=== PATIENT | male | born 1945 | race Caucasian/White ===

== ENCOUNTER → 2018-02-26 | Outpatient (CLI) | payer MEDICARE ==
[~2018-02-26] MED LIST: IOHEXOL 240 MG/ML 50ML VIAL. ONE; IOHEXOL 300 MG/ML 75 ML VIAL. IV ONE; LISI1TAB3 PO
[2018-02-26 10:17] LABS: BASO % 1 % (0-3); EOS % 1 % (0-3); HEMATOCRIT 42.3 % (39.0-53.0); LYMPH # 0.8 x10^3/uL (1.0-4.8); LYMPH % 21 % (24-48); MEAN CORPUSCULAR HEMOGLOBIN 31 pg (25-35); MEAN CORPUSCULAR HGB CONC 36 g/dL (31-37); MEAN CORPUSCULAR VOLUME 88 fL (79-100); MONO # 0.4 x10^3/uL (0.0-1.1); MONO % 12 % (0-9); NEUT # 2.4 x10^3uL (1.8-7.7); NEUT % 65 % (31-73); PLATELET COUNT 254 x10^3/uL (140-400); RED BLOOD COUNT 4.79 x10^6/uL (4.30-5.70); RED CELL DISTRIBUTION WIDTH 12.8 % (11.5-14.5); WHITE BLOOD COUNT 3.7 x10^3/uL (4.0-11.0)
[2018-02-26 10:26] LABS: ALBUMIN 4.7 g/dL (3.4-5.0); ALBUMIN/GLOBULIN RATIO 1.2 (1.0-1.7); CALCIUM 9.2 mg/dL (8.5-10.1); GFR 73.7; POTASSIUM 3.4 mmol/L (3.5-5.1); TOTAL BILIRUBIN 0.9 mg/dL (0.2-1.0); TOTAL PROTEIN 8.5 g/dL (6.4-8.2)
--- NOTE | 2018-02-26 12:02 | RAD ---
CT of the abdomen and pelvis with contrast, 02/26/2018: HISTORY: Abdominal pain, high blood pressure Multidetector CT imaging was performed following oral and IV administration of contrast. No hepatic abnormality is seen. The gallbladder is unremarkable. No pancreatic abnormality is detected. The spleen is of normal size. No renal or adrenal abnormality is detected. There is moderate aortoiliac calcific plaquing without evidence of aneurysm. No abdominal or pelvic adenopathy is seen. Colonic diverticula are present most numerous in the sigmoid region. No paracolonic inflammatory process is seen. The bowel loops are not dilated. A portion of the appendix is visualized and it is unremarkable. No free fluid or free air is evident in the abdomen or pelvis. There is a history of hernia repairs. A small 1.4 x 2.7 fluid collection is noted at the left groin. This is unchanged since 11/27/2013 and probably represents an old postoperative seroma. No bowel herniation is evident. There is fascial thickening at the right groin compatible with previous hernia surgery. IMPRESSION: 1. Colonic diverticulosis. 2. Small old left groin fluid collection compatible with an old postoperative seroma. 3. No acute abdominal or pelvic abnormality is detected. PQRS Compliance Statement: One or more of the following individualized dose reduction techniques were utilized for this examination: 1. Automated exposure control 2. Adjustment of the mA and/or kV according to patient size 3. Use of iterative reconstruction technique Electronically signed by: Evert Mcdonough MD (02/26/2018 11:59 AM) [facility]
== END | disposition home or self-care (01) ==
LOC: CT 09:33
PROVIDERS: ATTEND Physician Assistant
DX: K57.30 Diverticulosis of large intestine without perforation or abscess without bleeding (principal); K91.873 Postprocedural seroma of a digestive system organ or structure following other procedure; I10 Essential (primary) hypertension
CPT/HCPCS: 36415; 74177; 80053; 82150; 83690; 85025; Q9966; Q9967

== ENCOUNTER 2020-02-15 20:12 | Emergency (ER) | payer MEDICARE ==
[~2020-02-15] VITALS: Ht 177.8 cm; Wt 84.0 kg
[~2020-02-15 20:12] MED LIST changes: -IOHEXOL 240 MG/ML 50ML VIAL. ONE; -IOHEXOL 300 MG/ML 75 ML VIAL. IV ONE; +LISI1TAB23 PO; -LISI1TAB3 PO
[2020-02-15 21:15] LABS: BASO % 1 % (0-3); EOS % 1 % (0-3); HEMATOCRIT 42.7 % (39.0-53.0); LYMPH # 0.9 x10^3/uL (1.0-4.8); LYMPH % 21 % (24-48); MEAN CORPUSCULAR HEMOGLOBIN 32 pg (25-35); MEAN CORPUSCULAR HGB CONC 35 g/dL (31-37); MEAN CORPUSCULAR VOLUME 92 fL (79-100); MONO # 0.7 x10^3/uL (0.0-1.1); MONO % 16 % (0-9); NEUT # 2.6 x10^3uL (1.8-7.7); NEUT % 62 % (31-73); PLATELET COUNT 248 x10^3/uL (140-400); RED BLOOD COUNT 4.64 x10^6/uL (4.30-5.70); RED CELL DISTRIBUTION WIDTH 12.5 % (11.5-14.5); WHITE BLOOD COUNT 4.2 x10^3/uL (4.0-11.0)
[2020-02-15 21:21] LABS: CALCIUM 9.4 mg/dL (8.5-10.1); CREATININE 1.1 mg/dL (0.7-1.3); GFR 65.6; POTASSIUM 3.2 mmol/L (3.5-5.1)
--- NOTE | 2020-02-15 21:24 | PHYS DOC ---
Past History Past Medical History: Hypertension Past Surgical History: Other Additional Past Surgical Histo: GI scope. Alcohol Use: None Adult General Chief Complaint Chief Complaint: NAUSEA/VOMITING/DIARRHEA HPI HPI Patient is a 74-year-old male who presents for nausea, vomiting and diarrhea. Patient reports this is an acute on chronic phenomenon. Reports having upper and lower endoscopy 10 days ago that was grossly unremarkable, cites he had several noncancerous polyps removed. Reports he had this performed as it was time for his annual colonoscopy screening, he is unsure why he got the upper endoscopy performed. Patient reports having nonspecific symptoms that include generalized abdominal pain and nausea prompting him to call his primary care physician 4 days ago, he was subsequently prescribed Levaquin and ciprofloxacin as he has a reported history of diverticulitis. He has been taking these medications daily. Patient reports ongoing nausea, reports development of emesis which is nonbloody and nonbilious in nature approximately 48 hours ago. He also cites increased looseness in his stools which is unusual for him. Denies any known and ingestions, sick contacts or exposures. Patient reports he has been compliant with social distancing and quarantining at home but admits he does travel to grocery store to get daily goods etc. Review of Systems Review of Systems Fourteen body systems of review of systems have been reviewed. See HPI for pertinent positives and negative responses, other de león all other systems are negative, non-pertinent or non-contributory Allergies Allergies Allergies Uncoded Allergies Type Severity Reaction Last Updated Verified SEASONAL Allergy Unknown 11/27/13 Physical Exam Physical Exam Constitutional: Well developed, well nourished, no acute distress, non-toxic appearance. [] HENT: Normocephalic, atraumatic, bilateral external ears normal, oropharynx moist, no oral exudates, nose normal. [] Eyes: PERRLA, EOMI, conjunctiva normal, no discharge. [] Neck: Normal range of motion, no tenderness, supple, no stridor. [] Cardiovascular:Heart rate regular rhythm, no murmur [] Lungs & Thorax: Bilateral breath sounds clear to auscultation [] Abdomen: Bowel sounds normal, soft, no tenderness, no masses, no pulsatile masses. [] Skin: Warm, dry, no erythema, no rash. [] Back: No tenderness, no CVA tenderness. [] Extremities: No tenderness, no cyanosis, no clubbing, ROM intact, no edema. [] Neurologic: Alert and oriented X 3, normal motor function, normal sensory function, no focal deficits noted. [] Psychologic: Affect normal, judgement normal, mood normal. [] Current Patient Data Vital Signs Vital Signs Date Time Temp Pulse Resp B/P (MAP) Pulse Ox O2 Delivery O2 Flow Rate FiO2 02/15/20 20:52 67 16 177/114 (135) 98 Room Air 02/15/20 20:22 98.0 Lab Results Laboratory Tests Test 02/15/20 20:36 White Blood Count 4.2 x10^3/uL (4.0-11.0) Red Blood Count 4.64 x10^6/uL (4.30-5.70) Hemoglobin 15.0 g/dL (13.0-17.5) Hematocrit 42.7 % (39.0-53.0) Mean Corpuscular Volume 92 fL (79-100) Mean Corpuscular Hemoglobin 32 pg (25-35) Mean Corpuscular Hemoglobin Concent 35 g/dL (31-37) Red Cell Distribution Width 12.5 % (11.5-14.5) Platelet Count 248 x10^3/uL (140-400) Neutrophils (%) (Auto) 62 % (31-73) Lymphocytes (%) (Auto) 21 % (24-48) L Monocytes (%) (Auto) 16 % (0-9) H Eosinophils (%) (Auto) 1 % (0-3) Basophils (%) (Auto) 1 % (0-3) Neutrophils # (Auto) 2.6 x10^3uL (1.8-7.7) Lymphocytes # (Auto) 0.9 x10^3/uL (1.0-4.8) L Monocytes # (Auto) 0.7 x10^3/uL (0.0-1.1) Eosinophils # (Auto) 0.0 x10^3/uL (0.0-0.7) Basophils # (Auto) 0.0 x10^3/uL (0.0-0.2) Sodium Level 126 mmol/L (136-145) L Potassium Level 3.2 mmol/L (3.5-5.1) L Chloride Level 90 mmol/L (98-107) L Carbon Dioxide Level 26 mmol/L (21-32) Anion Gap 10 (6-14) Blood Urea Nitrogen 11 mg/dL (8-26) Creatinine 1.1 mg/dL (0.7-1.3) Estimated GFR (Cockcroft-Gault) 65.6 BUN/Creatinine Ratio 10 (6-20) Glucose Level 110 mg/dL (70-99) H Calcium Level 9.4 mg/dL (8.5-10.1) Total Bilirubin Pending Aspartate Amino Transferase (AST) Pending Alanine Aminotransferase (ALT) Pending Alkaline Phosphatase Pending Total Protein Pending Albumin Pending Albumin/Globulin Ratio Pending Lipase Pending EKG EKG EKG ordered and interpreted by myself at 2128 hrs. as sinus rhythm at 87 bpm, unremarkable intervals, left axis deviation, no acute ischemic findings, no STEMI Radiology/Procedures Radiology/Procedures PROCEDURE: CT ABD PELV W/ IV CONTRST ONLY EXAMINATION: CT ABD PELV W/ IV CONTRST ONLY (CT ABDOMEN/PELVIS WITH IV CONTRAST) CLINICAL HISTORY: Left lower quadrant abdominal pain TECHNIQUE: CT of the abdomen and pelvis was performed using standard technique, scanning from just above the dome of the diaphragm to the symphysis pubis following administration of intravenous contrast. CT Dose Reduction Employed: One or more of the following individualized dose reduction techniques were utilized for this examination: 1. Automated exposure control 2. Adjustment of the mA and/or kV according to patient size 3. Use of iterative reconstruction technique. COMPARISON: 02/26/2018 FINDINGS: Lower thorax: Unremarkable. Liver: Mild hypoattenuation of the hepatic parenchyma, compatible with mild steatosis. Biliary: No bile duct dilation. Minimally distended gallbladder. Spleen: No mass. No splenomegaly. Pancreas: No mass or duct dilation. Adrenals: No mass. Kidneys: No mass, calculus or hydronephrosis. GI tract: No dilation or wall thickening. Sigmoid diverticulosis without evidence of acute diverticulitis. Normal appendix. Lymph nodes: No abdominal or pelvic lymphadenopathy. Mesentery/Peritoneum: No ascites or mass. Retroperitoneum: No mass. Vasculature: The celiac axis and SMA are patent. The portal vein and branches, splenic vein, SMV, and hepatic veins are patent. Arterial atherosclerotic disease without aneurysm. Pelvis: Postoperative changes related to inguinal hernia repairs, similar in appearance on prior study. Moderately filled urinary bladder. Bones/Soft Tissues: L5-S1 degenerative disc disease. Degenerative changes bilateral SI joints. IMPRESSION: No evidence of acute abdominopelvic abnormality. Sigmoid diverticulosis without evidence of acute diverticulitis. Essentially unchanged postoperative findings related to inguinal hernia repairs. Electronically signed by: Hair Callejas DO (02/15/2020 11:27 PM) [facility] Heart Score Risk Factors: Risk Factors: DM, Current or recent (<one month) smoker, HTN, HLP, family history of CAD, obesity. Risk Scores: Risk Factors: DM, Current or recent (<one month) smoker, HTN, HLP, family history of CAD, obesity. Course & Med Decision Making Course & Med Decision Making Hemodynamically stable and well-appearing male Pertinent Labs and Imaging studies reviewed. (See chart for details) He responded to IV fluid rehydration while in ER with near total symptomatic improvement I discussed grossly benign ER work-up today, I did disclose given current pandemic and symptomology that I could not definitively rule out COVID-19 and recommended he be swabbed for this today, he declined Patient reports having good access to care with outpatient primary care physician. I advised him to continue previously prescribed medications, to take them as instructed to completion and follow-up with his primary care provider in upcoming 14 days after ER discharge Strict return precautions were discussed with good understanding by patient, all questions and concerns addressed prior to ER departure in improved condition Wendi Disclaimer Wendi Disclaimer This electronic medical record was generated, in whole or in part, using a voice recognition dictation system. Departure Departure: Impression: Primary Impression: Nausea, vomiting, and diarrhea Additional Impression: Electrolyte abnormality Disposition: 01 DC HOME SELF CARE/HOMELESS Condition: IMPROVED Referrals: JF MCGOVERN MD (PCP) Patient Instructions: Nausea and Vomiting Additional Instructions: As discussed prior to ER departure, please call your primary care physician first thing in the morning to schedule outpatient follow-up Please utilize attached reading and continue supportive care measures for your nausea and vomit. Please also continue previously prescribed antibiotics from your PCP, take as prescribed to completion As disclosed, you have several electrolyte abnormalities which will need repeat evaluation in outpatient setting this upcoming week so please be sure to follow- up with your primary care physician. In addition, you were found to have trace elevation in liver enzymes which will also need to be monitored in an outpatient setting If any concerning signs or symptoms present prior to your departure, please do not hesitate to come back for repeat examination Your evaluation was not suggestive of any emergent condition requiring medical intervention at this time. However, some problems make take more time to appear. Therefore, it is important for you to watch for any new symptoms or worsening of your current condition. Return to the Emergency Department if you experience worsening pain, persistent fevers greater than 100.4, recurrent vomiting, blood in vomit, blood in stool, dark tarry stool, chest pain, difficulty breathing, or any other concerning symptoms. It was a pleasure to take care of you and I wish you a speedy recovery! Problem Qualifiers VILMA KEMP DO Feb 15, 2020 21:24
[2020-02-15 21:28] LABS: ALBUMIN 4.1 g/dL (3.4-5.0); ALBUMIN/GLOBULIN RATIO 1.2 (1.0-1.7); TOTAL PROTEIN 7.5 g/dL (6.4-8.2)
[2020-02-15] MEDS ORDERED: CONTRAST GIVEN. MC PRN (21:45)
[2020-02-15] MEDS ORDERED: IOHEXOL 300 MG/ML 75 ML VIAL. IV ONE (22:00)
[2020-02-15] MEDS ORDERED: IV NORMAL SALINE 1,000ML 1,000 ML IV ONE (22:00)
--- NOTE | 2020-02-15 22:15 | EKG ---
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
[2020-02-15 22:16] LABS: CLARITY,URINE CLEAR; COLOR,URINE YELLOW
[2020-02-15 22:17] LABS: BACTERIA,URINE 0 /HPF (0-FEW); BILIRUBIN,URINE NEG (NEG); GLUCOSE,URINE NEG (NEG); NITRITE,URINE NEG (NEG); RBC,URINE 0 /HPF (0-2); UROBILINOGEN,URINE 0.2 mg/dL (0.2 mg/dL); WBC,URINE 0 /HPF (0-4)
--- NOTE | 2020-02-15 22:17 | RAD ---
EXAM: AP View of the chest DATE: 02/15/2020 9:01 PM INDICATION: Reason: epigastric pain / Spl. Instructions: / History: COMPARISON: No Prior FINDINGS: The heart is not enlarged. Mediastinal and hilar contours are normal. No focal parenchymal airspace opacity. No pleural effusion or pneumothorax. IMPRESSION: 1. No radiographic evidence for acute cardiopulmonary process. Electronically signed by: Fritz Waters MD (02/15/2020 10:15 PM) [facility]
[2020-02-15] MEDS ORDERED: POTASSIUM CHLORIDE 20 MEQ TABLET.ER. PO ONE (23:00)
--- NOTE | 2020-02-15 23:29 | RAD ---
EXAMINATION: CT ABD PELV W/ IV CONTRST ONLY (CT ABDOMEN/PELVIS WITH IV CONTRAST) CLINICAL HISTORY: Left lower quadrant abdominal pain TECHNIQUE: CT of the abdomen and pelvis was performed using standard technique, scanning from just above the dome of the diaphragm to the symphysis pubis following administration of intravenous contrast. CT Dose Reduction Employed: One or more of the following individualized dose reduction techniques were utilized for this examination: 1. Automated exposure control 2. Adjustment of the mA and/or kV according to patient size 3. Use of iterative reconstruction technique. COMPARISON: 02/26/2018 FINDINGS: Lower thorax: Unremarkable. Liver: Mild hypoattenuation of the hepatic parenchyma, compatible with mild steatosis. Biliary: No bile duct dilation. Minimally distended gallbladder. Spleen: No mass. No splenomegaly. Pancreas: No mass or duct dilation. Adrenals: No mass. Kidneys: No mass, calculus or hydronephrosis. GI tract: No dilation or wall thickening. Sigmoid diverticulosis without evidence of acute diverticulitis. Normal appendix. Lymph nodes: No abdominal or pelvic lymphadenopathy. Mesentery/Peritoneum: No ascites or mass. Retroperitoneum: No mass. Vasculature: The celiac axis and SMA are patent. The portal vein and branches, splenic vein, SMV, and hepatic veins are patent. Arterial atherosclerotic disease without aneurysm. Pelvis: Postoperative changes related to inguinal hernia repairs, similar in appearance on prior study. Moderately filled urinary bladder. Bones/Soft Tissues: L5-S1 degenerative disc disease. Degenerative changes bilateral SI joints. IMPRESSION: No evidence of acute abdominopelvic abnormality. Sigmoid diverticulosis without evidence of acute diverticulitis. Essentially unchanged postoperative findings related to inguinal hernia repairs. Electronically signed by: Hair Callejas DO (02/15/2020 11:27 PM) [facility]
[2020-02-15 23:38] VITALS: BP 154/103
== END 2020-02-15 23:38 | disposition home or self-care (01) ==
LOC: ER 20:12
DX: E87.8 Other disorders of electrolyte and fluid balance, not elsewhere classified (principal); R11.2 Nausea with vomiting, unspecified; R19.7 Diarrhea, unspecified; I10 Essential (primary) hypertension
CPT/HCPCS: 36415; 71045; 74177; 80053; 81001; 83690; 84484; 85025; 93005; 96360; 99285; J7030; Q9967

== ENCOUNTER → 2020-07-30 | Outpatient (CLI) | payer MEDICARE ==
--- NOTE | 2020-07-30 12:55 | RAD ---
EXAM: CT Abdomen and Pelvis without IV contrast CLINICAL HISTORY: Reason: NAUSEA/VOMITING FOR 3 WEEKS / Spl. Instructions: / History: . COMPARISON: 02/15/2020, 02/26/2018 TECHNIQUE: Helical CT of the abdomen and pelvis without intravenous contrast. Axial, coronal and sagi ttal reformatted images were generated. PQRS compliance statement - One or more of the following individualized dose reduction techniques wer e utilized for this study: 1. Automated exposure control 2. Adjustment of the mA and/or kV according to patient size 3. Use of iterative reconstruction technique FINDINGS: Lack of intravenous contrast limits evaluation of solid organs, vasculature, and lymph nodes. Lower chest: 5 mm lingular lung nodule is seen, stable to 02/26/2018. Patchy opacities dependently right greater th an left lower lobe. Abdomen and Pelvis: No focal liver lesion. Gallbladder is normal. No biliary duct dilatation. Pancreas is unremarkable. S pleen is normal in appearance. Adrenal glands are unremarkable. No focal renal lesion. No hydronephrosis. No hydroureter. Mild bladder wall thickening likely cystiti s. Moderate colonic stool content is seen. Colonic diverticula are noted. Prostate is mildly prominent. Appendix is normal, no periappendiceal inflammatory change. Changes of left inguinal mesh hernia repa ir. Fat-containing right inguinal hernia. No abdominal or pelvic lymphadenopathy. Aortic and main branch calcifications. Bones: Severe L5-S1 disc height loss. IMPRESSION: 1. Mild bladder wall thickening likely cystitis. 2. Colonic diverticulosis without evidence for acute diverticulitis. 3. Moderate colonic stool content. Electronically signed by: Fritz Waters MD (07/30/2020 12:53 PM) [id number]
== END ==
LOC: CT 07:49
PROVIDERS: ATTEND Family Medicine
DX: K57.30 Diverticulosis of large intestine without perforation or abscess without bleeding (principal)
CPT/HCPCS: 74176

== ENCOUNTER 2020-08-24 14:55 | Observation (INO) | payer MEDICARE ==
[~2020-08-24] VITALS: Ht 180.3 cm; Wt 81.0 kg
[2020-08-24 15:30] VITALS: BP 163/98
[2020-08-24] MEDS ORDERED: ACETAMINOPHEN 500 MG TABLET PO PRN (16:45)
[2020-08-24] MEDS: IV NORMAL SALINE 1,000ML 1,000 ML IV SCH (16:45)
[2020-08-24] MEDS ORDERED: MORPHINE SULFATE 2 MG/ML DISP.SYRIN. IV PRN (16:45)
[2020-08-24] MEDS ORDERED: ZOLPIDEM 5 MG TABLET. PO PRN ×2 (16:45→17:45)
[2020-08-24] MEDS ORDERED: 0.9 % SODIUM CHLORIDE 10 ML DISP.SYRIN. IV PRN (16:45)
[2020-08-24] MEDS ORDERED: ONDANSETRON ODT 4 MG TAB.RAPDIS PO PRN (16:45)
[2020-08-24 17:21] LABS: BASO % 0 % (0-3); EOS % 0 % (0-3); HEMATOCRIT 42.7 % (39.0-53.0); HEMOGLOBIN 14.9 g/dL (13.0-17.5); LYMPH # 0.4 x10^3/uL (1.0-4.8); LYMPH % 9 % (24-48); MEAN CORPUSCULAR HEMOGLOBIN 32 pg (25-35); MEAN CORPUSCULAR HGB CONC 35 g/dL (31-37); MEAN CORPUSCULAR VOLUME 92 fL (79-100); MONO # 0.4 x10^3/uL (0.0-1.1); MONO % 11 % (0-9); NEUT # 3.2 x10^3uL (1.8-7.7); NEUT % 80 % (31-73); PLATELET COUNT 206 x10^3/uL (140-400); RED BLOOD COUNT 4.62 x10^6/uL (4.30-5.70)
[2020-08-24 17:32] LABS: CALCIUM 9.5 mg/dL (8.5-10.1); GFR 73.2
[2020-08-24 17:38] LABS: ALBUMIN 4.5 g/dL (3.4-5.0); ALBUMIN/GLOBULIN RATIO 1.1 (1.0-1.7); TOTAL BILIRUBIN 0.8 mg/dL (0.2-1.0); TOTAL PROTEIN 8.5 g/dL (6.4-8.2)
[2020-08-24] MEDS ORDERED: ONDANSETRON PF 4 MG/2 ML VIAL. IVP PRN (17:45)
[2020-08-24] MEDS ORDERED: cloNIDine TTS-2 1 PATCH PATCH TD SCH (18:00)
[2020-08-24] MEDS ORDERED: OMEP40CA7 PO (18:48)
[2020-08-24 19:04] LABS: BILIRUBIN,URINE SMALL (NEG); CLARITY,URINE CLEAR; COLOR,URINE YELLOW; GLUCOSE,URINE NEG (NEG)
[2020-08-24 19:05] LABS: NITRITE,URINE NEG (NEG)
[2020-08-24 19:07] LABS: BACTERIA,URINE 0 /HPF (0-FEW); RBC,URINE OCC /HPF (0-2); SQUAMOUS EPITHELIAL CELL,UR OCC /LPF; WBC,URINE 0 /HPF (0-4)
--- NOTE | 2020-08-24 19:24 | NUR ---
Patient arrived to the unit via ambulation. Patient was a direct admit from Dr. Miguel's office. Patient has been having bouts of N/V for several weeks off and on. Patient stated that he has been having trouble ever since Dr. Ocasio removed some polyps in June 2020. Patient also stated he has had some adverse reactions to the Covid Vaccine. Patient vomited this am at home and in Dr. Price office, therefore Dr Miguel admitted the patient with N/V, Abdominal pain, and dehydration. Patient was oriented to unit routines. Patient is currently in bed with side rails up X's 2 and call light in reach. Also patients is leaving for [place] tomorrow morning for a [employer] tournament. The patient was also supposed to be attending this [employer] tournament in [place] but Dr. Miguel advised the patient to not fly at this current time. We have 's contact information if needed. TM.
[2020-08-24 19:35] VITALS: BP 181/97
--- NOTE | 2020-08-24 20:03 | EKG ---
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
[2020-08-24] MEDS ORDERED: METOPROLOL TARTRATE 5 MG/5 ML VIAL. IV PRN (21:30)
[2020-08-24] MEDS ORDERED: ENOXAPARIN 40 MG/0.4 ML SYRINGE. SQ SCH (22:00)
[2020-08-24 22:18] VITALS: BP 175/92
[2020-08-24] MEDS: ZOLPIDEM 5 MG TABLET. PO PRN ×2 (22:42→23:55)
[2020-08-25] MEDS: IV NORMAL SALINE 1,000ML 1,000 ML IV SCH (02:45)
[2020-08-25] MEDS ORDERED: FUROSEMIDE 20 MG/2 ML VIAL IVP ONE (05:15)
[2020-08-25 06:07] LABS: BASO % 1 % (0-3); EOS % 0 % (0-3); HEMATOCRIT 41.5 % (39.0-53.0); HEMOGLOBIN 14.6 g/dL (13.0-17.5); LYMPH # 0.8 x10^3/uL (1.0-4.8); LYMPH % 24 % (24-48); MEAN CORPUSCULAR HEMOGLOBIN 33 pg (25-35); MEAN CORPUSCULAR HGB CONC 35 g/dL (31-37); MEAN CORPUSCULAR VOLUME 93 fL (79-100); MONO # 0.8 x10^3/uL (0.0-1.1); MONO % 23 % (0-9); NEUT # 1.7 x10^3uL (1.8-7.7); NEUT % 52 % (31-73); PLATELET COUNT 190 x10^3/uL (140-400); RED BLOOD COUNT 4.46 x10^6/uL (4.30-5.70); RED CELL DISTRIBUTION WIDTH 12.9 % (11.5-14.5); WHITE BLOOD COUNT 3.3 x10^3/uL (4.0-11.0)
[2020-08-25 06:23] LABS: DIRECT BILIRUBIN 0.3 mg/dL (0.0-0.2); TOTAL BILIRUBIN 0.8 mg/dL (0.2-1.0)
[2020-08-25 06:42] VITALS: BP 190/109
[2020-08-25] MEDS ORDERED: LABETALOL 20 MG/4 ML DISP.SYRIN. IVP ONE (06:45)
[2020-08-25] MEDS ORDERED: IOHEXOL 350 MG/ML 100 ML VIAL. IV ONE (07:30)
--- NOTE | 2020-08-25 08:07 | RAD ---
XR CHEST 2V History: Reason: CHEST PAIN / Spl. Instructions: / History: Comparison: February 15, 2020 Findings: No consolidation or pleural effusion. Normal heart size. No pneumothorax. Impression: 1. No acute cardiopulmonary process. Electronically signed by: Wallace Cedeño DO (08/25/2020 8:05 AM) [facility]
--- NOTE | 2020-08-25 08:18 | RAD ---
PQRS Compliance Statement: One or more of the following individualized dose reduction techniques were utilized for this examinat ion: 1. Automated exposure control 2. Adjustment of the mA and/or kV according to patient size 3. Use of iterative reconstruction technique CT CHEST WITH CONTRAST, PULMONARY ANGIOGRAM History: Reason: sinus tacy soa + d dimer, Comparison: None. Technique: Helical CT of the chest was performed after the administration of 100 cc of Omnipaque 350 intravenous contrast according to PE protocol. Axial and coronal reconstructions were obtained. 3- D MIP images were constructed to better evaluate the pulmonary arteries. Findings: Pulmonary arteries are adequately opacified. There is no evidence of pulmonary embolism. There is no thoracic aortic dissection. The celiac artery is patent. There is about 50 percent narrow ing of the proximal SMA. The visualized right and left renal arteries are patent. Aortic arch vessels are patent. Great vessels are normal caliber. The thyroid is symmetric. There is no adenopathy in the chest. There is coronary artery disease. Card iac size normal, no pericardial effusion. There is no pleural effusion. The central airways are patent. There is no lung consolidation. There i s a 6 mm noncalcified nodule in the lingula, image 69. This is stable compared to February 26, 2018, t herefore considered benign. No follow-up is suggested. There is fatty infiltration of the visualized liver, focal fatty sparing along the gallbladder fossa. Thoracic spine alignment is maintained. IMPRESSION: 1. There is no pulmonary embolus. 2. Fatty infiltration of the liver. Electronically signed by: Christopher Nice MD (08/25/2020 8:15 AM) [id number]
[2020-08-25 08:31] VITALS: BP 174/93
[2020-08-25 08:35] VITALS: BP 146/91
[2020-08-25 08:36] VITALS: BP 132/87
[2020-08-25] MEDS ORDERED: ONDA4TAB12 PO (08:53)
--- NOTE | 2020-08-25 09:56 | NUR ---
DISCHARGE NOTE pt discharged by Dr. Fernandez today. Pt verbalized understanding of discharge instructions and prescription transmitted to [facility]. All questions addressed. Pt ambulated from room to hospital entrance and left with family member in car. VSS and GCS 15 upon discharge. CC, RN
--- NOTE | 2020-08-25 19:33 | DS ---
DATE OF DISCHARGE: 08/25/2020 HOSPITAL COURSE: A 74-year-old gentleman came in through the office where he was having severe intractable nausea, vomiting, dehydration and also hypertensive urgency. The patient had not been able to take his medications or anything orally for that matter and was admitted to the hospital for control of his blood pressure as well as IV hydration and further evaluation of his intractable nausea and vomiting. The patient had a CT of the abdomen and pelvis, which showed some fat stranding around the bilateral kidneys, nonspecific, possible urinary tract infection, hepatic steatosis, colonic diverticulosis and a 6 mm nodule in the lingula of the lung. Followup CT as an outpatient. The patient was admitted. He was given Catapres patch as well as IV metoprolol and then later labetalol to control his blood pressure, which did come down. His nausea and vomiting abated with IV hydration and his last blood pressure is 132/87 with a pulse of 98. He was afebrile, 97 on room air. The patient made good progress during the rest of his hospitalization, did have a positive D-dimer. CTA was unremarkable as far as infective etiology or pulmonary emboli for that matter. The patient said he was feeling much better. Blood pressure has come down and he was discharged to home. His labs were unremarkable except for low white count of 3.3, increased monocytes, could have been a viral infection. The patient's AST and ALT were elevated at 58 and 73, total protein high at 8.5, glucose borderline at 122. Lactic acid was normal. Urine just showed increased ketones consistent with the fact the patient was unable to eat or drink anything for several days. C-reactive protein was slightly elevated at 3.8. The patient was discharged. FINAL DIAGNOSIS: Intractable vomiting, dehydration, hypertensive urgency, elevated liver enzymes, hyperglycemia, hepatic steatosis, hyponatremia 132 and leukopenia 3.3. The patient continued to be monitored as an outpatient and make further evaluation on his blood pressure as well as his other symptoms as indicated. MICHEL DR: Lizzie TID: [id number]
== END 2020-08-25 09:55 | disposition home or self-care (01) ==
LOC: 1 SOUTH 15:15 → INTOOBSV 15:15
PROVIDERS: ADMIT Family Medicine; ATTEND Family Medicine
DX: I16.0 Hypertensive urgency (principal); E86.0 Dehydration; D72.819 Decreased white blood cell count, unspecified; E87.1 Hypo-osmolality and hyponatremia; I26.99 Other pulmonary embolism without acute cor pulmonale; K76.0 Fatty (change of) liver, not elsewhere classified; R73.9 Hyperglycemia, unspecified
CPT/HCPCS: 36415; 71046; 71275; 74176; 80053; 80076; 81001; 82947; 83605; 83690; 84484; 85025; 85379; 86140; 93005; 96361; 96365; 96372; 96375; G0378; G0379; J0696; J1650; J2405; J3490; J7030; Q9967

== ENCOUNTER 2020-11-12 02:34 | Emergency (ER) | payer MEDICARE ==
[~2020-11-12] VITALS: Ht 182.9 cm; Wt 76.0 kg
[~2020-11-12 02:34] MED LIST changes: +OMEP40CA7 PO; +ONDA4TAB12 PO
[2020-11-12 02:44] VITALS: BP 149/68
--- NOTE | 2020-11-12 03:05 | PHYS DOC ---
Past History Past Medical History: Hypertension Past Surgical History: No Surgical History Additional Past Surgical Histo: GI scope. Smoking: Non-smoker Alcohol Use: None Drug Use: None General Adult EDM: Chief Complaint: COUGH HPI: HPI: 75-year-old male presents to the emergency department complaining of cough that started today. He reports the cough is dry, started gradually. Is not associate with any fever, chills chest pain or shortness of breath. He has been vaccinated for Covid with the moderna shot x2. He reports he has been very vigilant about social distancing and limiting his activities and wearing a mask at all times to prevent him from getting coronavirus. He denies any specific instances of possible transmission. Review of Systems: Review of Systems: Constitutional: Denies fever or chills. Eyes: Denies change in vision, pain. HENT: Denies congestion or sore throat. Respiratory: Admits to cough; denies shortness of breath. Cardiovascular: Denies chest pain or edema. GI: Denies abdominal pain, nausea. : Denies change in urination, dysuria. Musculoskeletal: Denies extremity pain, or trauma. Skin: Denies rash, skin change. Neurologic: Denies headache, focal weakness. Psychiatric: Denies depression or anxiety. All other systems reviewed as negative except for what was mentioned in the HPI. Family History: Family History: Noncontributory Allergies: Allergies: Allergies Uncoded Allergies Type Severity Reaction Last Updated Verified SEASONAL Allergy Unknown 11/27/13 Physical Exam: PE: Constitutional: No acute distress, non-toxic appearance. HENT: Atraumatic, bilateral external ears normal, nose normal. Neck: Normal range of motion, supple, no stridor. Cardiovascular: Heart rate regular rhythm. 2+ radial pulses Lungs & Thorax: No respiratory distress, symmetrical expansion. Coarse breath sounds. Patient with frequent cough during exam. Abdomen: Soft, no tenderness Skin: Warm, dry. Extremities: No tenderness, no cyanosis, ROM intact, no edema. Neurologic: Alert and oriented X 3, normal motor function, normal sensory function, no focal deficits noted. Non ataxic gait. GCS 15. Psychologic: Affect normal, judgment normal, mood normal. Current Patient Data: Labs: Laboratory Tests Test 11/12/20 03:45 White Blood Count 3.7 x10^3/uL (4.0-11.0) L Red Blood Count 4.05 x10^6/uL (4.30-5.70) L Hemoglobin 13.7 g/dL (13.0-17.5) Hematocrit 39.3 % (39.0-53.0) Mean Corpuscular Volume 97 fL (79-100) Mean Corpuscular Hemoglobin 34 pg (25-35) Mean Corpuscular Hemoglobin Concent 35 g/dL (31-37) Red Cell Distribution Width 13.0 % (11.5-14.5) Platelet Count 300 x10^3/uL (140-400) Neutrophils (%) (Auto) 50 % (31-73) Lymphocytes (%) (Auto) 34 % (24-48) Monocytes (%) (Auto) 13 % (0-9) H Eosinophils (%) (Auto) 2 % (0-3) Basophils (%) (Auto) 1 % (0-3) Neutrophils # (Auto) 1.8 x10^3uL (1.8-7.7) Lymphocytes # (Auto) 1.2 x10^3/uL (1.0-4.8) Monocytes # (Auto) 0.5 x10^3/uL (0.0-1.1) Eosinophils # (Auto) 0.1 x10^3/uL (0.0-0.7) Basophils # (Auto) 0.0 x10^3/uL (0.0-0.2) Sodium Level 140 mmol/L (136-145) Potassium Level 3.5 mmol/L (3.5-5.1) Chloride Level 102 mmol/L (98-107) Carbon Dioxide Level 27 mmol/L (21-32) Anion Gap 11 (6-14) Blood Urea Nitrogen 8 mg/dL (8-26) Creatinine 0.8 mg/dL (0.7-1.3) Estimated GFR (Cockcroft-Gault) 94.5 Glucose Level 111 mg/dL (70-99) H Calcium Level 8.3 mg/dL (8.5-10.1) L Vital Signs: Vital Signs Date Time Temp Pulse Resp B/P (MAP) Pulse Ox O2 Delivery O2 Flow Rate FiO2 11/12/20 02:44 98.4 87 29 149/68 95 Room Air Radiology/Procedures: Radiology/Procedures: AP chest x-ray HISTORY: Shortness of breath. COMPARISON: CT chest August 25, 2020 FINDINGS: Heart size normal. Mediastinal silhouette is normal. No pneumothorax, pulmonary opacities or pleural effusions. Old deformity posterior left fourth rib stable.. IMPRESSION: No acute process. Electronically signed by: Fidel Womack MD (11/12/2020 3:51 AM) Heart Score: C/O Chest Pain: No Course & Med Decision Making: Course & Med Decision Making My Orders - RENÉE MCDANIEL DO Procedure Category Date Status Time Coronavirus-19, Pcr LAB 11/12/20 Logged ([facility]) 02:56 Chest Ap Only RAD 11/12/20 Resulted 02:56 Cbc W [employer] LAB 11/12/20 Logged 02:56 Basic Metabolic Panel LAB 11/12/20 Logged 02:56 Work-up consistent with a bronchitis, we will withhold antibiotics as his chest x-ray is clear, he has no white count, he looks and appears well. His who later came by at the bedside, states that he had a intermittent cough since earlier this summer. It appears there is nothing acute on today's exam. Patient was instructed to follow-up with his primary care doctor for further work-up and return to the emergency department as needed Departure Departure: Impression: Primary Impression: Bronchitis Disposition: 01 HOME / SELF CARE / HOMELESS Condition: STABLE Referrals: JF MCGOVERN MD (PCP) Patient Instructions: Bronchitis, [id number] Additional Instructions: You were seen in the emergency department and your health condition was deemed not to require admission to the hospital. It is important to realize that we can only evaluate you during the time that you are in her department. Occasionally health conditions can worsen upon leaving the emergency department. If this were to happen, please return to and allow us the opportunity to reevaluate you. It is a pleasure to take care of your health needs. Return to the ER if your symptoms worsen, do not improve, or if you develop additional symptoms that are concerning to you RENÉE MCDANIEL DO Nov 12, 2020 03:05
--- NOTE | 2020-11-12 03:54 | RAD ---
AP chest x-ray HISTORY: Shortness of breath. COMPARISON: CT chest August 25, 2020 FINDINGS: Heart size normal. Mediastinal silhouette is normal. No pneumothorax, pulmonary opacities o r pleural effusions. Old deformity posterior left fourth rib stable.. IMPRESSION: No acute process. Electronically signed by: Fidel Womack MD (11/12/2020 3:51 AM) [facility]
[2020-11-12 04:10] LABS: BASO % 1 % (0-3); EOS # 0.1 x10^3/uL (0.0-0.7); EOS % 2 % (0-3); HEMATOCRIT 39.3 % (39.0-53.0); HEMOGLOBIN 13.7 g/dL (13.0-17.5); LYMPH # 1.2 x10^3/uL (1.0-4.8); LYMPH % 34 % (24-48); MEAN CORPUSCULAR HEMOGLOBIN 34 pg (25-35); MEAN CORPUSCULAR HGB CONC 35 g/dL (31-37); MEAN CORPUSCULAR VOLUME 97 fL (79-100); MONO # 0.5 x10^3/uL (0.0-1.1); MONO % 13 % (0-9); NEUT # 1.8 x10^3uL (1.8-7.7); NEUT % 50 % (31-73); PLATELET COUNT 300 x10^3/uL (140-400); RED BLOOD COUNT 4.05 x10^6/uL (4.30-5.70); WHITE BLOOD COUNT 3.7 x10^3/uL (4.0-11.0)
[2020-11-12 04:15] LABS: CALCIUM 8.3 mg/dL (8.5-10.1); CREATININE 0.8 mg/dL (0.7-1.3); GFR 94.5; POTASSIUM 3.5 mmol/L (3.5-5.1)
== END 2020-11-12 04:20 | disposition home or self-care (01) ==
LOC: ER 02:34
DX: J40 Bronchitis, not specified as acute or chronic (principal); I10 Essential (primary) hypertension; Z20.822 Contact with and (suspected) exposure to COVID-19
CPT/HCPCS: 71045; 80048; 85025; 99284; C9803; U0003

== ENCOUNTER 2020-12-30 14:50 | Observation (INO) | payer MEDICARE ==
[~2020-12-30] VITALS: Ht 180.3 cm; Wt 82.1 kg
[2020-12-30] MEDS ORDERED: IV NORMAL SALINE 1,000ML 1,000 ML IV ONE (15:00)
--- NOTE | 2020-12-30 15:20 | PHYS DOC ---
Past History Past Medical History: Hypertension Past Surgical History: Other Additional Past Surgical Histo: hernia sx Smoking: Non-smoker Alcohol Use: None Drug Use: None General Adult EDM: Chief Complaint: ABNORMAL LABS HPI: HPI: 75-year-old male presents to the primary care physician, Dr. Miguel with abnormal labs. He was told that his sodium was low and some other lab is not sure which one. Dr. Miguel would like him admitted. Patient has no other specific complaints at this time Review of Systems: Review of Systems: Constitutional: Denies fever or chills Eyes: Denies change in visual acuity HENT: Denies nasal congestion or sore throat Respiratory: Denies cough or shortness of breath Cardiovascular: Denies chest pain or edema GI: Denies abdominal pain, nausea, vomiting, bloody stools or diarrhea : Denies dysuria Musculoskeletal: Denies back pain or joint pain Integument: Denies rash Neurologic: Denies headache, focal weakness or sensory changes Endocrine: Denies polyuria or polydipsia Lymphatic: Denies swollen glands Psychiatric: Denies depression or anxiety Current Medications: Current Meds: Current Medications Medications (Trade) Dose Ordered Sig/Lynn Start Time Stop Time Status Last Admin Dose Admin Sodium Chloride 1,000 ml @ 1,000 mls/hr 1X ONCE 12/30/20 15:00 12/30/20 15:59 12/30/20 15:04 1,000 MLS/HR Allergies: Allergies: Allergies Uncoded Allergies Type Severity Reaction Last Updated Verified SEASONAL Allergy Unknown 11/27/13 Physical Exam: PE: Constitutional: Well developed, well nourished, no acute distress, non-toxic appearance. [] HENT: Normocephalic, atraumatic, bilateral external ears normal, oropharynx moist, no oral exudates, nose normal. [] Eyes: PERRLA, EOMI, conjunctiva normal, no discharge. [] Neck: Normal range of motion, no tenderness, supple, no stridor. [] Cardiovascular:Heart rate regular rhythm, no murmur [] Lungs & Thorax: Bilateral breath sounds clear to auscultation [] Abdomen: Bowel sounds normal, soft, no tenderness, no masses, no pulsatile masses. [] Skin: Warm, dry, no erythema, no rash. [] Back: No tenderness, no CVA tenderness. [] Extremities: No tenderness, no cyanosis, no clubbing, ROM intact, no edema. [] Neurologic: Alert and oriented X 3, normal motor function, normal sensory function, no focal deficits noted. [] Psychologic: Affect normal, judgement normal, mood normal. [] Current Patient Data: Vital Signs: Vital Signs Date Time Temp Pulse Resp B/P (MAP) Pulse Ox O2 Delivery O2 Flow Rate FiO2 12/30/20 14:53 83 18 124/79 (94) 98 EKG: EKG: Sinus rhythm, rate 84, leftward axis, no ST elevation depression. [] Radiology/Procedures: Radiology/Procedures: [] Heart Score: C/O Chest Pain: N/A Risk Factors: Risk Factors: DM, Current or recent (<one month) smoker, HTN, HLP, family history of CAD, obesity. Risk Scores: Score 0 - 3: 2.5% MACE over next 6 weeks - Discharge Home Score 4 - 6: 20.3% MACE over next 6 weeks - Admit for Clinical Observation Score 7 - 10: 72.7% MACE over next 6 weeks - Early Invasive Strategies Course & Med Decision Making: Course & Med Decision Making Pertinent Labs and Imaging studies reviewed. (See chart for details) The patient's labs are significant for a sodium of 115. His Cr is mildly elevated as are liver enzymes. The patient appears well on exam. EKG is unremarkable. We will start him on normal saline. I have spoken to Dr. Miguel and he has accepted the patient for admission. The patient is in agreement with this plan. [] Dragon Disclaimer: Dragon Disclaimer: This electronic medical record was generated, in whole or in part, using a voice recognition dictation system. Departure Departure: Referrals: JF MIGUEL MD (PCP) MIAN ESPINAL DO Dec 30, 2020 15:20
[2020-12-30 15:28] LABS: BASO % 1 % (0-3); EOS % 1 % (0-3); HEMATOCRIT 36.6 % (39.0-53.0); HEMOGLOBIN 13.5 g/dL (13.0-17.5); LYMPH # 0.6 x10^3/uL (1.0-4.8); LYMPH % 12 % (24-48); MEAN CORPUSCULAR HEMOGLOBIN 33 pg (25-35); MEAN CORPUSCULAR HGB CONC 37 g/dL (31-37); MEAN CORPUSCULAR VOLUME 90 fL (79-100); MONO # 0.7 x10^3/uL (0.0-1.1); MONO % 13 % (0-9); NEUT # 3.6 x10^3uL (1.8-7.7); NEUT % 74 % (31-73); PLATELET COUNT 208 x10^3/uL (140-400); RED BLOOD COUNT 4.07 x10^6/uL (4.30-5.70); RED CELL DISTRIBUTION WIDTH 12.8 % (11.5-14.5); WHITE BLOOD COUNT 4.9 x10^3/uL (4.0-11.0)
--- NOTE | 2020-12-30 15:39 | EKG ---
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
[2020-12-30 15:41] LABS: BACTERIA,URINE 0 /HPF (0-FEW); BILIRUBIN,URINE NEG (NEG); CLARITY,URINE CLEAR; COLOR,URINE YELLOW; GLUCOSE,URINE NEG (NEG); NITRITE,URINE NEG (NEG); RBC,URINE 0 /HPF (0-2); WBC,URINE 0 /HPF (0-4)
[2020-12-30 15:45] LABS: ALBUMIN 4.6 g/dL (3.4-5.0); ALBUMIN/GLOBULIN RATIO 1.4 (1.0-1.7); CALCIUM 9.3 mg/dL (8.5-10.1); CREATININE 1.4 mg/dL (0.7-1.3); GFR 49.5; POTASSIUM 3.6 mmol/L (3.5-5.1); TOTAL BILIRUBIN 1.5 mg/dL (0.2-1.0)
[2020-12-30] MEDS ORDERED: ONDANSETRON PF 4 MG/2 ML VIAL. IVP PRN (16:15)
[2020-12-30] MEDS ORDERED: AMLO-187 PO (17:05)
[2020-12-30] MEDS ORDERED: LISI10TA16 PO (19:15)
[2020-12-30 19:44] VITALS: BP 169/98
[2020-12-30] MEDS ORDERED: PANTOPRAZOLE 40 MG TABLET. PO ONE (20:00)
[2020-12-30] MEDS ORDERED: ONDANSETRON ODT 4 MG TAB.RAPDIS PO PRN (20:00)
[2020-12-30] MEDS: IV NORMAL SALINE 1,000ML 1,000 ML IV SCH (20:15)
[2020-12-30] MEDS ORDERED: ZOLPIDEM 5 MG TABLET. PO PRN (20:15)
[2020-12-30] MEDS ORDERED: MELA3TAB43 PO (20:25)
[2020-12-30] MEDS ORDERED: DOXY25TA49 PO (20:25)
[2020-12-30] MEDS ORDERED: DOXYLAMINE SUCCINATE 25 MG TABLET PO SCH (21:00)
[2020-12-30] MEDS ORDERED: amLODIPine BESYLATE 10 MG TABLET PO SCH (21:00)
[2020-12-30] MEDS ORDERED: MELATONIN 3 MG TABLET PO SCH (21:00)
[2020-12-30] MEDS ORDERED: LISINOPRIL 10 MG TABLET PO SCH (21:00)
[2020-12-30 23:12] VITALS: BP 155/87
[2020-12-31] MEDS: IV NORMAL SALINE 1,000ML 1,000 ML IV SCH (05:57)
[2020-12-31 06:00] VITALS: BP 142/83
[2020-12-31 06:41] LABS: ALBUMIN 4.1 g/dL (3.4-5.0); DIRECT BILIRUBIN 0.6 mg/dL (0.0-0.2); TOTAL BILIRUBIN 1.2 mg/dL (0.2-1.0); TOTAL PROTEIN 7.7 g/dL (6.4-8.2)
[2020-12-31] MEDS ORDERED: PANTOPRAZOLE 40 MG TABLET. PO SCH (07:30)
[2020-12-31 09:09] LABS: CALCIUM 9.1 mg/dL (8.5-10.1); CREATININE 0.9 mg/dL (0.7-1.3); GFR 82.5; POTASSIUM 3.1 mmol/L (3.5-5.1)
[2020-12-31 10:25] VITALS: BP 145/84
[2020-12-31] MEDS ORDERED: FLU VACC QUAD 21-22 (6MOS+) PF 0.5 ML SYRINGE. VAX IM ONE (12:00)
[2020-12-31] MEDS ORDERED: MORPHINE SULFATE 2 MG/ML DISP.SYRIN. IV PRN (12:15)
--- NOTE | 2020-12-31 13:09 | RAD ---
EXAM: HEPATOBILIARY SCINTIGRAPHY WITH GALLBLADDER EJECTION FRACTION CALCULATION. HISTORY: Abdominal pain/nausea. TECHNIQUE: 5.5 mCi technetium-99m Choletec were administered intravenously and scintigraphic images o f the abdomen obtained. 2 mg of morphine were also administered intravenously. FINDINGS: There is prompt hepatic clearance of tracer from the blood pool. There is homogeneous distr ibution throughout the liver. There is clearance into the biliary tree and small bowel. The gallbladd er does not fill through 60 minutes. The gallbladder fills after administration of morphine. IMPRESSION: 1. The gallbladder fills with activity, indicating cystic duct patency. Electronically signed by: Jericho Howard MD (12/31/2020 1:07 PM) [id number]
[2020-12-31 23:13] LABS: HEMOGLOBIN A1C 5.9 % (4.8-5.6)
--- NOTE | 2021-01-03 11:36 | DS ---
DATE OF DISCHARGE: 12/31/2020 HOSPITAL COURSE: A 75-year-old gentleman came in, he was nauseated, vomiting, lightheadedness. Sodium had dropped down to 114 and was admitted, he was placed on some normal saline and made excellent progress. His sodium came up from 115, 114 to 126, potassium 3.1. His liver enzymes decreased from approximately ____ to about half that. The patient made good progress during the rest of his hospitalization. He has an appointment for followup with Dr. Padron to follow up on his liver situation as well as monitoring his low sodium for possible SIADH. IMPRESSION: Syndrome of inappropriate secretion of antidiuretic hormone, elevated liver enzymes, hypokalemia, hyponatremia, hyperbilirubinemia. A1c 5.9. COVID negative. The patient's PIPIDA scan was unremarkable. The patient will be monitored carefully, followup with Dr. Padron. Regular diet. See BENITO. [place]/LAURENT/IQB DR: Lizzie TID: [id number]
== END 2020-12-31 14:54 | disposition home or self-care (01) ==
LOC: ER 14:50 → INTOOBSV 16:54 → 1 SOUTH 16:54
PROVIDERS: ADMIT Family Medicine; ATTEND Family Medicine
DX: E22.2 Syndrome of inappropriate secretion of antidiuretic hormone (principal); Z20.822 Contact with and (suspected) exposure to COVID-19; R94.5 Abnormal results of liver function studies; E87.6 Hypokalemia; I10 Essential (primary) hypertension; N40.0 Benign prostatic hyperplasia without lower urinary tract symptoms; R11.2 Nausea with vomiting, unspecified; Z23 Encounter for immunization; R17 Unspecified jaundice; Z79.899 Other long term (current) drug therapy; Z98.890 Other specified postprocedural states
CPT/HCPCS: 36415; 76700; 78226; 80048; 80053; 80076; 81001; 83036; 83690; 84484; 85025; 85379; 87426; 90471; 90686; 93005; 96361; 96365; 96375; 99284; A9537; G0378; J0696; J2270; J7030; U0003; 96374; G0379

== ENCOUNTER 2021-01-28 10:52 | Emergency (ER) | payer MEDICARE ==
[~2021-01-28] VITALS: Ht 180.3 cm; Wt 78.6 kg
[~2021-01-28 10:52] MED LIST changes: +AMLO-187 PO; +DOXY25TA49 PO; +LISI10TA16 PO; -LISI1TAB23 PO; +LISI1TAB35 PO; +MELA3TAB43 PO
--- NOTE | 2021-01-28 11:34 | PHYS DOC ---
Past History Past Medical History: Hypertension Past Surgical History: Other Additional Past Surgical Histo: hernia sx Smoking: Non-smoker Alcohol Use: None Drug Use: None Adult General HPI HPI Patient is a 75-year-old male presenting for nausea and vomit. This is an acute on chronic issue. States symptom onset was approximately 2 weeks ago without any known recent travel or known sick contacts. States he has had intermittent episodes of nausea with subsequent nonbloody nonbilious emesis. He reports this is been going on every other day or so. He reported an episode of nausea this morning with subsequent emesis prompting him to come in today for evaluation given chronicity of symptoms. Reports he has had prior Covid vaccines. Has medical history of hypertension only for which he takes lisinopril and amlodipine. Denies any other known medical diagnoses and was recently seen by outpatient cardiology team for provocative testing that was all unremarkable. Denies any other fever, URI symptoms, loss of taste or smell, abdominal pain or urinary symptoms Review of Systems Review of Systems Fourteen body systems of review of systems have been reviewed. See HPI for p ertinent positives and negative responses, other de león all other systems are negative, non-pertinent or non-contributory Allergies Allergies Allergies Uncoded Allergies Type Severity Reaction Last Updated Verified SEASONAL Allergy Unknown 11/27/13 Physical Exam Physical Exam Constitutional: Well developed, well nourished, no acute distress, non-toxic appearance. HENT: Normocephalic, atraumatic, bilateral external ears normal, oropharynx moist, no oral exudates, nose normal. Eyes: PERRLA, EOMI, conjunctiva normal, no discharge. Neck: Normal range of motion, no tenderness, supple, no stridor. Cardiovascular: Heart rate regular, sinus rhythm, no murmurs rubs or gallops Lungs & Thorax: Bilateral breath sounds clear to auscultation Abdomen: Bowel sounds normal, soft, no tenderness, no masses, no pulsatile masses. Nonsurgical abdomen, no peritoneal signs Skin: Warm, dry, no erythema, no rash. Back: No tenderness, no CVA tenderness. Extremities: No tenderness, no cyanosis, no clubbing, ROM intact, no edema. Neurologic: Alert and oriented X 3, grossly normal motor & sensory function, no focal deficits noted. Psychologic: Affect normal, judgement normal, mood normal. Current Patient Data Vital Signs Vital Signs Date Time Temp Pulse Resp B/P (MAP) Pulse Ox O2 Delivery O2 Flow Rate FiO2 01/28/21 11:00 98.6 100 22 161/101 (121) 96 Vital Signs Date Time Temp Pulse Resp B/P (MAP) Pulse Ox O2 Delivery O2 Flow Rate FiO2 01/28/21 13:10 88 18 164/102 (122) 98 01/28/21 11:00 98.6 Lab Results Laboratory Tests Test 01/28/21 11:40 White Blood Count 4.0 x10^3/uL Red Blood Count 3.98 x10^6/uL Hemoglobin 13.4 g/dL Hematocrit 38.1 % Mean Corpuscular Volume 96 fL Mean Corpuscular Hemoglobin 34 pg Mean Corpuscular Hemoglobin Concent 35 g/dL Red Cell Distribution Width 13.3 % Platelet Count 168 x10^3/uL Neutrophils (%) (Auto) 77 % Lymphocytes (%) (Auto) 10 % Monocytes (%) (Auto) 13 % Eosinophils (%) (Auto) 0 % Basophils (%) (Auto) 0 % Neutrophils # (Auto) 3.1 x10^3uL Lymphocytes # (Auto) 0.4 x10^3/uL Monocytes # (Auto) 0.5 x10^3/uL Eosinophils # (Auto) 0.0 x10^3/uL Basophils # (Auto) 0.0 x10^3/uL Sodium Level 131 mmol/L Potassium Level 3.2 mmol/L Chloride Level 90 mmol/L Carbon Dioxide Level 26 mmol/L Anion Gap 15 Blood Urea Nitrogen 10 mg/dL Creatinine 1.0 mg/dL Estimated GFR (Cockcroft-Gault) 73.0 BUN/Creatinine Ratio 10 Glucose Level 136 mg/dL Calcium Level 10.1 mg/dL Total Bilirubin 2.0 mg/dL Aspartate Amino Transf (AST/SGOT) 69 U/L Alanine Aminotransferase (ALT/SGPT) 74 U/L Alkaline Phosphatase 59 U/L Troponin I High Sensitivity 66 ng/L Total Protein 8.4 g/dL Albumin 4.6 g/dL Albumin/Globulin Ratio 1.2 Lipase 124 U/L Current Medications Medications (Trade) Dose Ordered Sig/Lynn Route PRN Reason Start Time Stop Time Status Last Admin Dose Admin Sodium Chloride 1,000 ml @ 1,000 mls/hr 1X ONCE IV 01/28/21 11:45 01/28/21 12:44 DC 01/28/21 12:24 Ondansetron HCl (Zofran) 4 mg 1X ONCE IVP 01/28/21 12:15 01/28/21 12:27 DC 01/28/21 12:24 EKG EKG EKG ordered and interpreted by myself at 1201 hrs. is sinus rhythm at 91 bpm, QTC 484 otherwise unremarkable intervals, left axis deviation, no acute ischemic findings, no STEMI Radiology/Procedures Radiology/Procedures XR CHEST 1V History: Reason: nausea and vomit / Spl. Instructions: / History: Comparison: November 12, 2020 Findings: No consolidation or pleural effusion. Normal heart size. No pneumothorax. Impression: 1. No acute cardiopulmonary process. Electronically signed by: Wallace Cedeño DO (01/28/2021 12:08 PM) [id number] Heart Score C/O Chest Pain: No HEART Score for Chest Pain: HEART Score for Chest Pain Response (Comments) Value History Slighlty/Non-Suspicious 0 ECG Normal 0 Age > 65 2 Risk Factors 1 or 2 Risk Factors 1 Troponin < Normal Limit 0 Total 3 Risk Factors: Risk Factors: DM, Current or recent (<one month) smoker, HTN, HLP, family history of CAD, obesity. Risk Scores: Risk Factors: DM, Current or recent (<one month) smoker, HTN, HLP, family history of CAD, obesity. Course & Med Decision Making Course & Med Decision Making ABCs unremarkable. I disclosed entirety of ER findings and discussed most likely diagnosis of nausea and vomit. Other diagnoses were discussed with patient such as ACS, pneumonia and other potentially life-threatening diagnoses but all deemed less likely causes of patient's presentation. Patient's symptoms resolved with ER intervention provided. Disclosed I could not rule out COVID-19 and so patient was checked today with supportive care instructions advised and close outpatient follow-up and safe to do so. Plan of care discussed at length with need for close outpatient follow-up to review today's ER visit stressed. Strict return precautions were also discussed at length with good understanding verbalized by patient. Patient voiced understanding and agreement with the plan. Patient knows to come back for repeat evaluation if concerning signs or symptoms present prior to outpatient follow-up. Hemodynamically stable, ambulatory and well-appearing at time of disposition. Dragon Disclaimer Dragon Disclaimer This electronic medical record was generated, in whole or in part, using a voice recognition dictation system. Departure Departure: Impression: Primary Impression: Nausea & vomiting Additional Impression: Person under investigation for COVID-19 Disposition: 01 HOME / SELF CARE / HOMELESS Condition: STABLE Referrals: JF MCGOVERN MD (PCP) Patient Instructions: Nausea and Vomiting Additional Instructions: You were seen for nausea and vomiting. You most likely have a viral illness which should resolve in the next few days to a week. With that said, you were tested for COVID-19 despite prior vaccination as it is still possible to be symptomatic and actively infected. Your results should come back within upcoming 24 hours. In the meantime, you should stay at home and self quarantine and provide self-care to yourself until a negative result is reported to. Further instructions and care will be discussed if this test in fact comes back positive. Ultimately, you should return to the ED if you develop abdominal pain, fever > 100.3, black/bloody stools, black/bloody vomiting, cannot keep water down, or any other new or concerning symptoms. Scripts Ondansetron (ONDANSETRON ODT) 4 Mg Tab.rapdis 1 TAB PO PRN Q6-8HRS for nausea, #16 TAB Prov: VILMA KEMP DO 01/28/21 Problem Qualifiers VILMA KEMP DO Jan 28, 2021 11:34
[2021-01-28] MEDS ORDERED: IV NORMAL SALINE 1,000ML 1,000 ML IV ONE (11:45)
[2021-01-28 11:57] LABS: BASO % 0 % (0-3); EOS % 0 % (0-3); HEMATOCRIT 38.1 % (39.0-53.0); HEMOGLOBIN 13.4 g/dL (13.0-17.5); LYMPH # 0.4 x10^3/uL (1.0-4.8); LYMPH % 10 % (24-48); MEAN CORPUSCULAR HEMOGLOBIN 34 pg (25-35); MEAN CORPUSCULAR HGB CONC 35 g/dL (31-37); MEAN CORPUSCULAR VOLUME 96 fL (79-100); MONO # 0.5 x10^3/uL (0.0-1.1); MONO % 13 % (0-9); NEUT # 3.1 x10^3uL (1.8-7.7); NEUT % 77 % (31-73); PLATELET COUNT 168 x10^3/uL (140-400); RED BLOOD COUNT 3.98 x10^6/uL (4.30-5.70); RED CELL DISTRIBUTION WIDTH 13.3 % (11.5-14.5)
[2021-01-28 12:08] LABS: CALCIUM 10.1 mg/dL (8.5-10.1); POTASSIUM 3.2 mmol/L (3.5-5.1)
--- NOTE | 2021-01-28 12:09 | EKG ---
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
--- NOTE | 2021-01-28 12:11 | RAD ---
XR CHEST 1V History: Reason: nausea and vomit / Spl. Instructions: / History: Comparison: November 12, 2020 Findings: No consolidation or pleural effusion. Normal heart size. No pneumothorax. Impression: 1. No acute cardiopulmonary process. Electronically signed by: Wallace Cedeño DO (01/28/2021 12:08 PM) [id number]
[2021-01-28] MEDS ORDERED: ONDANSETRON PF 4 MG/2 ML VIAL. IVP ONE (12:15)
[2021-01-28 12:20] LABS: ALBUMIN 4.6 g/dL (3.4-5.0); ALBUMIN/GLOBULIN RATIO 1.2 (1.0-1.7); TOTAL PROTEIN 8.4 g/dL (6.4-8.2)
[2021-01-28] MEDS ORDERED: ONDA4TAB12 PO (12:39)
[2021-01-28 13:10] VITALS: BP 164/102
== END 2021-01-28 13:30 | disposition home or self-care (01) ==
LOC: ER 10:52
DX: R11.2 Nausea with vomiting, unspecified (principal); I10 Essential (primary) hypertension; Z20.822 Contact with and (suspected) exposure to COVID-19
CPT/HCPCS: 71045; 80053; 83690; 84484; 85025; 93005; 96361; 96374; 99285; C9803; J2405; J7030; U0003

== ENCOUNTER 2021-07-27 11:35 | Inpatient (IN) | payer MEDICARE ==
[~2021-07-27] VITALS: Ht 180.3 cm; Wt 83.0 kg
--- NOTE | 2021-07-27 11:45 | PHYS DOC ---
Past History Past Medical History: Hypertension Past Surgical History: Other Additional Past Surgical Histo: hernia sx Smoking: Non-smoker Alcohol Use: None Drug Use: None General Adult EDM: Chief Complaint: WEAKNESS/GENERALIZED HPI: HPI: Patient is a 75-year-old male coming in via EMS from home for generalized weakness. Patient called EMS but then was refusing transport and signed papers. EMS waited on scene and since patient went to the house he fell forwards. No loss of consciousness. Patient is a poor historian. Per EMS they contacted the who said that he has been not feeling well for the past year after abdominal surgery. Review of Systems: Review of Systems: All other systems within normal limits except for as noted in the HPI Allergies: Allergies: Allergies Coded Allergies Type Severity Reaction Last Updated Verified No Known Drug Allergies 01/28/21 No Physical Exam: PE: Constitutional: Well developed, well nourished, no acute distress, non-toxic appearance. [] HENT: Normocephalic, atraumatic, bilateral external ears normal, nose normal. [] Eyes: PERRLA, conjunctiva normal, no discharge. [] Neck: No rigidity, supple, no stridor. [] Cardiovascular: Regular rate and rhythm, brisk cap refill [] Lungs & Thorax: Non labored symmetric respirations, no tachypnea or respiratory distress [] Abdomen: Soft, nondistended. Skin: Warm, dry, no erythema, no rash. [] Back: Unremarkable Extremities: No deformities, range of motion grossly intact, no lower extremity edema [] Neurologic: Alert and oriented X 3, no focal deficits noted, bilateral symmetric upper extremity tremors. [] Psychologic: Affect normal, judgement normal, mood normal. [] EKG: EKG: [] Radiology/Procedures: Radiology/Procedures: [address] [address] IMAGING REPORT Signed PATIENT: CALLIE GUPTA LACCOUNT: [id number] : 1945 LOCATION: ER AGE: 75 SEX: M EXAM STATUS: REG ER ORD. PHYSICIAN: BETH DE SOUZA MD REASON: weakness PROCEDURE: PORTABLE CHEST 1V EXAM: XR CHEST 1V 07/27/2021 12:00 PM CLINICAL INDICATION: Weakness COMPARISON: Chest radiograph 01/28/2021 TECHNIQUE: AP upright view of the chest FINDINGS: The heart is normal in size. Lungs are well-expanded. No consolidation, pleural effusion, or pneumothorax. No acute osseous abnormality. IMPRESSION: No acute cardiopulmonary abnormality. Electronically signed by: Beth Longoria MD (07/27/2021 1:51 PM) [id number] DICTATED AND SIGNED BY: BETH LONGORIA MD DATE: 07/27/21 9029 CC: BETH DE SOUZA MD; JF MCGOVERN MD ~ [][place] [address] IMAGING REPORT Signed PATIENT: CALLIE GUPTA LACCOUNT: [id number] : 1945 LOCATION: ER AGE: 75 SEX: M EXAM STATUS: REG ER ORD. PHYSICIAN: BETH DE SOUZA MD REASON: fall, ams PROCEDURE: CT HEAD AND CERVICAL SPINE WO EXAM: CT head and cervical spine without contrast INDICATION: Fall, altered mental status COMPARISON: None TECHNIQUE: Axial CT imaging through the head and cervical spine without intraven ous contrast. Sagittal and coronal reformats were obtained. One or more of the following individualized dose reduction techniques were utilized for this examination: 1. Automated exposure control 2. Adjustment of the mA and/or kV according to patient size 3. Use of iterative reconstruction technique. FINDINGS: CT head: No intracranial hemorrhage or acute infarct. There is vague increased attenuation in the left frontal lobe and left basal ganglia. This is favored to be artifact to be infarct. Ventricles and sulci are prominent. The skull and scalp are intact. Paranasal sinuses and mastoid air cells are clear. Globes and orbits are intact. CT cervical spine: No acute fracture. There is 2 mm retrolisthesis of C3 on C4. Severe disc space narrowing with anterior osteophytes and uncovertebral joint proliferation at C3- C4, C5-C6, and C6-C7. Mild canal narrowing at C3-C4, C4-C5, and C6-C7 related to disc osteophyte complexes. Probable moderate canal narrowing at C5-C6. Multilevel moderate foraminal narrowing related to uncovertebral joint proliferation. There is mild bilateral facet arthrosis, greatest at C2-C3 and the 45 on the right. Prevertebral soft tissues normal. There are calcifications in the carotid bulbs. IMPRESSION: 1. No acute intracranial abnormality. 2. Vague increased attenuation in the left frontal lobe and basal ganglia is favored to be artifact. A follow-up CT could be obtained to ensure resolution. If the abnormality persists, MRI could be obtained. 3. No acute osseous abnormality of the cervical spine. 4. Degenerative disc disease. Electronically signed by: Beth Longoria MD (07/27/2021 12:32 PM) [id number] DICTATED AND SIGNED BY: BETH LONGORIA MD DATE: 07/27/21 1206 CC: BETH DE SOUZA MD; JF MCGOVERN MD ~ Heart Score: C/O Chest Pain: No Risk Factors: Risk Factors: DM, Current or recent (<one month) smoker, HTN, HLP, family history of CAD, obesity. Risk Scores: Score 0 - 3: 2.5% MACE over next 6 weeks - Discharge Home Score 4 - 6: 20.3% MACE over next 6 weeks - Admit for Clinical Observation Score 7 - 10: 72.7% MACE over next 6 weeks - Early Invasive Strategies Course & Med Decision Making: Course & Med Decision Making Pertinent Labs and Imaging studies reviewed. (See chart for details) Elevated anion gap lactic acidosis and some ketones in urine likely secondary to alcoholic ketosis and/or starvation ketosis [] Dragon Disclaimer: Dragon Disclaimer: This electronic medical record was generated, in whole or in part, using a voice recognition dictation system. Departure Departure: Impression: Primary Impression: Nausea & vomiting Additional Impression: Increased anion gap metabolic acidosis Disposition: ADMITTED INPATIENT Admitting Physician: Jf Mcgovern Condition: GUARDED Referrals: JF MCGOVERN MD (PCP) BETH DE SOUZA MD July 27, 2021 11:45
[2021-07-27] MEDS ORDERED: ONDANSETRON PF 4 MG/2 ML VIAL. ONE (11:46)
[2021-07-27] MEDS ORDERED: ONDANSETRON PF 4 MG/2 ML VIAL. IVP ONE (12:00)
[2021-07-27] MEDS ORDERED: IV NORMAL SALINE 1,000ML 1,000 ML IV ONE (12:00)
--- NOTE | 2021-07-27 12:06 | EKG ---
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
[2021-07-27 12:11] LABS: BASO % 1 % (0-3); EOS % 0 % (0-3); HEMATOCRIT 43.4 % (39.0-53.0); HEMOGLOBIN 15.1 g/dL (13.0-17.5); LYMPH # 0.8 x10^3/uL (1.0-4.8); LYMPH % 21 % (24-48); MEAN CORPUSCULAR HEMOGLOBIN 33 pg (25-35); MEAN CORPUSCULAR HGB CONC 35 g/dL (31-37); MEAN CORPUSCULAR VOLUME 96 fL (79-100); MONO # 0.3 x10^3/uL (0.0-1.1); MONO % 9 % (0-9); NEUT # 2.7 x10^3uL (1.8-7.7); NEUT % 70 % (31-73); PLATELET COUNT 222 x10^3/uL (140-400); RED BLOOD COUNT 4.53 x10^6/uL (4.30-5.70); RED CELL DISTRIBUTION WIDTH 12.5 % (11.5-14.5); WHITE BLOOD COUNT 3.9 x10^3/uL (4.0-11.0)
--- NOTE | 2021-07-27 12:34 | RAD ---
EXAM: CT head and cervical spine without contrast INDICATION: Fall, altered mental status COMPARISON: None TECHNIQUE: Axial CT imaging through the head and cervical spine without intravenous contrast. Sagitta l and coronal reformats were obtained. One or more of the following individualized dose reduction techniques were utilized for this examinat ion: 1. Automated exposure control 2. Adjustment of the mA and/or kV according to patient size 3. Use of iterative reconstruction technique. FINDINGS: CT head: No intracranial hemorrhage or acute infarct. There is vague increased attenuation in the left frontal lobe and left basal ganglia. This is favored to be artifact to be infarct. Ventricles and sulci are prominent. The skull and scalp are intact. Paranasal sinuses and mastoid air cells are clear. Globes and orbits are intact. CT cervical spine: No acute fracture. There is 2 mm retrolisthesis of C3 on C4. Severe disc space narrowing with anterio r osteophytes and uncovertebral joint proliferation at C3-C4, C5-C6, and C6-C7. Mild canal narrowing at C3-C4, C4-C5, and C6-C7 related to disc osteophyte complexes. Probable moderate canal narrowing at C5-C6. Multilevel moderate foraminal narrowing related to uncovertebral joint proliferation. There i s mild bilateral facet arthrosis, greatest at C2-C3 and the 45 on the right. Prevertebral soft tissue s normal. There are calcifications in the carotid bulbs. IMPRESSION: 1. No acute intracranial abnormality. 2. Vague increased attenuation in the left frontal lobe and basal ganglia is favored to be artifact. A follow-up CT could be obtained to ensure resolution. If the abnormality persists, MRI could be obta ined. 3. No acute osseous abnormality of the cervical spine. 4. Degenerative disc disease. Electronically signed by: Beth Lonogria MD (07/27/2021 12:32 PM) [id number]
[2021-07-27 13:51] LABS: CALCIUM 9.1 mg/dL (8.5-10.1); CREATININE 0.9 mg/dL (0.7-1.3); GFR 82.5; POTASSIUM 3.3 mmol/L (3.5-5.1)
--- NOTE | 2021-07-27 13:54 | RAD ---
EXAM: XR CHEST 1V 07/27/2021 12:00 PM CLINICAL INDICATION: Weakness COMPARISON: Chest radiograph 01/28/2021 TECHNIQUE: AP upright view of the chest FINDINGS: The heart is normal in size. Lungs are well-expanded. No consolidation, pleural effusion, or pneumothorax. No acute osseous abnormality. IMPRESSION: No acute cardiopulmonary abnormality. Electronically signed by: Beth Longoria MD (07/27/2021 1:51 PM) [id number]
[2021-07-27 14:02] LABS: ALBUMIN 4.7 g/dL (3.4-5.0); ALBUMIN/GLOBULIN RATIO 1.4 (1.0-1.7); MAGNESIUM 1.8 mg/dL (1.8-2.4); TOTAL BILIRUBIN 1.6 mg/dL (0.2-1.0); TOTAL PROTEIN 8.1 g/dL (6.4-8.2)
[2021-07-27 14:05] LABS: BARBITURATES NEG (NEG); BENZODIAZEPINES NEG (NEG); CANNABINOIDS NEG (NEG); COCAINE NEG (NEG); METHADONE NEG (NEG); OPIATES NEG (NEG); PHENCYCLIDINE NEG (NEG)
[2021-07-27 14:13] LABS: AMPHETAMINE/METHAMPHETAMINE NEG (NEG)
[2021-07-27 14:28] LABS: CLARITY,URINE CLEAR; COLOR,URINE YELLOW; GLUCOSE,URINE NEG (NEG)
[2021-07-27 14:29] LABS: BACTERIA,URINE 0 /HPF (0-FEW); HYALINE CASTS, URINE FEW /HPF; NITRITE,URINE NEG (NEG); RBC,URINE OCC /HPF (0-2); UROBILINOGEN,URINE 0.2 mg/dL (0.2 mg/dL); WBC,URINE OCC /HPF (0-4)
[2021-07-27 14:46] LABS: ACETAMIN < 2.0 mcg/mL (10-30); SALIC < 2.8 mg/dL (2.8-20.0)
[2021-07-27] MEDS ORDERED: MVI, ADULT NO.4 WITH VIT K 10 ML, FOLIC ACID INJ 1 MG, THIAMINE INJ 100 MG in IV RINGER... IV ONE (15:00)
[2021-07-27] MEDS ORDERED: POTASSIUM CHLORIDE 20 MEQ TABLET.ER. PO ONE (15:00)
[2021-07-27] MEDS ORDERED: ACETAMINOPHEN 325 MG TABLET PO PRN (15:15)
[2021-07-27 15:18] LABS: INFLUENZA A PATIENT NEGATIVE (NEGATIVE); INFLUENZA B PATIENT NEGATIVE (NEGATIVE)
[2021-07-27] MEDS: ONDANSETRON PF 4 MG/2 ML VIAL. IVP PRN ×2 (16:16→20:39)
[2021-07-27 17:15] VITALS: BP 170/89
[2021-07-27] MEDS: IV RINGERS SOLUTION,LACTATED 1,000 ML IV SCH (18:30)
[2021-07-27] MEDS ORDERED: amLODIPine BESYLATE 5 MG TABLET PO SCH (20:30)
[2021-07-27] MEDS: amLODIPine BESYLATE 10 MG TABLET PO SCH ×2 (20:30→22:29)
[2021-07-27] MEDS ORDERED: SODIUM BICARB ADULT 8.4% 50 MEQ/50 ML DISP.SYRIN. IV ONE (20:30)
[2021-07-28 00:23] VITALS: BP 167/90
[2021-07-28] MEDS: IV RINGERS SOLUTION,LACTATED 1,000 ML IV SCH ×3 (05:40→20:00)
[2021-07-28 05:51] VITALS: BP 174/98
[2021-07-28 06:23] LABS: BASO % 1 % (0-3); EOS % 0 % (0-3); HEMATOCRIT 41.2 % (39.0-53.0); HEMOGLOBIN 14.3 g/dL (13.0-17.5); LYMPH # 0.6 x10^3/uL (1.0-4.8); LYMPH % 22 % (24-48); MEAN CORPUSCULAR HEMOGLOBIN 33 pg (25-35); MEAN CORPUSCULAR HGB CONC 35 g/dL (31-37); MEAN CORPUSCULAR VOLUME 96 fL (79-100); MONO # 0.3 x10^3/uL (0.0-1.1); MONO % 13 % (0-9); NEUT # 1.8 x10^3uL (1.8-7.7); NEUT % 64 % (31-73); PLATELET COUNT 149 x10^3/uL (140-400); RED CELL DISTRIBUTION WIDTH 12.5 % (11.5-14.5); WHITE BLOOD COUNT 2.7 x10^3/uL (4.0-11.0)
[2021-07-28 06:43] LABS: ALBUMIN 4.2 g/dL (3.4-5.0); ALBUMIN/GLOBULIN RATIO 1.3 (1.0-1.7); CALCIUM 9.1 mg/dL (8.5-10.1); CREATININE 0.8 mg/dL (0.7-1.3); GFR 94.5; POTASSIUM 3.3 mmol/L (3.5-5.1); TOTAL BILIRUBIN 1.9 mg/dL (0.2-1.0); TOTAL PROTEIN 7.4 g/dL (6.4-8.2)
[2021-07-28] MEDS: amLODIPine BESYLATE 10 MG TABLET PO SCH (08:21)
[2021-07-28] MEDS: LISINOPRIL 10 MG TABLET PO SCH (08:21)
[2021-07-28 08:59] LABS: BGAS PH 7.51 (7.35-7.46)
[2021-07-28] MEDS ORDERED: THIAMINE IM 200 MG/2 ML VIAL. IM SCH (09:00)
[2021-07-28] MEDS: PRENATAL MULTIVITAMIN TABLET. PO SCH (10:24)
[2021-07-28] MEDS: THIAMINE 100 MG TABLET. PO SCH (10:24)
[2021-07-28] MEDS: cloNIDine HCL 0.1 MG TABLET PO SCH ×2 (10:29→20:12)
[2021-07-28 10:33] VITALS: BP_SYST 141; BP_SYST 163; BP_DIAS 77; BP_DIAS 92
--- NOTE | 2021-07-28 10:45 | HP ---
DATE OF SERVICE: 07/28/2021 ADMIT DATE: 07/27/2021 HISTORY OF PRESENT ILLNESS: A 75-year-old male who came in through the Emergency Room, been falling quite a bit at home, very generalized weakness. The patient apparently fell forwards, hit his head. At the time of admission, he was extremely poor historian. He has had recent abdominal surgery, has been drinking quite a bit. Has had nausea and vomiting, unable to keep any liquids down, became increasingly dehydrated and as a result of that, the patient was basically incapacitated. He was admitted for further evaluation of possible alcohol withdrawal, general weakness, falling and the like. PAST MEDICAL HISTORY: He has had a history of cardiac disorders, hypertension, diverticulosis, colonic polyps removed, abdominal hernia repairs, GERD, kidney stones, urinary tract infections. Influenza vaccination up to date. ALLERGIES: No known allergies. FAMILY HISTORY: Positive for diabetes. SOCIAL HISTORY: The patient denies smoking; however, does do heavy drinking from time to time, 6 packs of beer or whatever and the like. The patient is a FULL CODE. REVIEW OF SYSTEMS: At the time of interview, the patient was markedly confused and weak, unable to give much of a history. He had marked tremor to his extremities. He denies chest pain or shortness of breath. He did have abdominal pain, epigastric pain with significant amounts of nausea and vomiting. Denies any melena, hematochezia or hematemesis and neurologically as noted was somewhat confused and somewhat disoriented. PHYSICAL EXAMINATION: VITAL SIGNS: Blood pressure 160/90, respiratory rate 20, pulse in the 90s, afebrile, 94% on room air. HEENT: Head was atraumatic, normocephalic. Eyes: PERRL. The patient is somewhat waxy appearance. The patient's skin was somewhat clammy. LUNGS: Diminished, but clear. CARDIOVASCULAR: Regular sinus rhythm. ABDOMEN: Soft, diffuse tenderness in the epigastric area, primarily in the right upper quadrant area, possible slight enlargement of the liver area. Spleen was normal with no masses noted. Otherwise, diffuse tenderness, but no rebounding or guarding. Positive bowel sounds, no bruits were noted. EXTREMITIES: Without clubbing, cyanosis, nor edema. Generalized weakness. The patient had a resting tremor. The patient's reflexes are somewhat brisk. NEUROLOGIC: Speech was spontaneous, and fluent; however, the patient did have trouble pronouncing some of his words and expressing himself and the like. The patient otherwise is stable. He had trouble walking as noted, was falling quite a bit. CT scan of the head and neck taking because of his falling, showed attenuation of the left frontal lobe and basal ganglia, possible artifact. We will have to follow up with repeat CT scan as an outpatient in another month or so. Degenerative disk disease, but no fractures to the neck area since he had fallen. This was performed. Chest x-ray was unremarkable. LABORATORY DATA: Showed anion gap of some 26 and low bicarbonate on his blood gas of 7.36, pCO2 of 35 and a pO2 of only 59, although that is improved this morning with fluids, bicarbonate and the like. His liver enzymes were elevated. AST of 145, ALT 131. Potassium slightly low at 3.3. Blood sugar is 108, GFR good. Urine did show increasing ketones in the urine, probably from not eating, nausea and vomiting. Ethyl alcohol level 147. Serology not detected for SARS or influenza. IMPRESSION: Metabolic acidosis, alcohol withdrawal, possible early delirium tremens, elevated liver enzymes, electrolyte imbalance, leukopenia. White count 2.7, hemoglobin 14 and hematocrit 41, stable there. The patient will be admitted, placed on a banana bag, IV Ativan and CIWA protocol, which switched over to vitamins and shots of thiamine for withdrawal. Continue fluids, lactated Ringer's to help neutralize the acidity of his metabolic acidosis secondary to alcoholism. Continue to monitor liver enzymes and make further evaluation on him as indicated. JACK DR: AMERICA/dave TID: [id number]
[2021-07-28] MEDS: ONDANSETRON PF 4 MG/2 ML VIAL. IVP PRN (11:17)
[2021-07-28 15:25] VITALS: BP 151/81
[2021-07-28] MEDS ORDERED: MVI, ADULT NO.4 WITH VIT K 10 ML, THIAMINE INJ 100 MG, FOLIC ACID INJ 1 MG in IV NORMAL... IV SCH (16:00)
[2021-07-28] MEDS ORDERED: ONDANSETRON PF 4 MG/2 ML VIAL. IVP PRN (16:45)
[2021-07-28] MEDS ORDERED: CETI10TA74 PO (16:49)
[2021-07-28] MEDS ORDERED: MULT-245 PO (16:49)
[2021-07-28] MEDS ORDERED: CHOL10004 PO (16:49)
[2021-07-28 19:52] VITALS: BP 156/91
[2021-07-28] MEDS ORDERED: ZOLPIDEM 5 MG TABLET. PO PRN (21:00)
[2021-07-28 23:36] VITALS: BP 161/95
[2021-07-29] MEDS: IV RINGERS SOLUTION,LACTATED 1,000 ML IV SCH (04:00)
[2021-07-29 05:53] VITALS: BP 157/91
[2021-07-29] MEDS: THIAMINE 100 MG TABLET. PO SCH (08:15)
[2021-07-29] MEDS: PRENATAL MULTIVITAMIN TABLET. PO SCH (08:15)
[2021-07-29] MEDS: cloNIDine HCL 0.1 MG TABLET PO SCH (08:15)
[2021-07-29] MEDS: LISINOPRIL 10 MG TABLET PO SCH (08:16)
[2021-07-29] MEDS: amLODIPine BESYLATE 10 MG TABLET PO SCH (08:17)
[2021-07-29 09:30] VITALS: BP 154/86
[2021-07-29] MEDS ORDERED: THIA100T22 PO (09:54)
[2021-07-29] MEDS ORDERED: CLON0.1T PO (09:54)
[2021-07-29] MEDS ORDERED: PREN1TAB58 PO (09:54)
[2021-07-29] MEDS ORDERED: NALT50TA PO (09:54)
[2021-07-30] MEDS ORDERED: CETIRIZINE HCL 10 MG TABLET PO SCH (09:00)
[2021-07-30] MEDS ORDERED: CHOLECALCIFEROL (VITAMIN D3) 1,000 UNIT TABLET PO SCH (09:00)
--- NOTE | 2021-08-05 09:02 | DS ---
DATE OF DISCHARGE: 07/29/2021 HOSPITAL COURSE: The patient apparently having generalized weakness. He had been even drinking alcohol at home, became quite ill and having apparently recent abdominal surgery, came in being increasingly nauseaus with severe vomiting with him and inability to keep anything down, developed a significant anion gap in his electrolytes greater than 26. The patient was given bicarb to help neutralize the acidity. He had metabolic acidosis. The patient's liver enzymes were elevated. AST 145, ALT 131. Potassium is slightly low. The patient made good progress and basically he was hydrated with fluids as well as with bicarb. The patient in turn had an elevated lactic acid. Overall, he made good progress. His ethyl alcohol level was 147. He was also given banana bags and thiamine to help him with his situation there. The patient overall made good progress. Apparently, he also had fallen and head CT was basically unremarkable, although a CT scan was recommended as a followup. The patient also noted some problems with the neck in terms of degenerative changes. FINAL IMPRESSION: 1. Metabolic acidosis. 2. Alcohol intoxication. 3. Elevated liver enzymes. 4. Abnormal CT scan of the head. 5. Leukopenia. 6. Severe nausea, vomiting and dehydration. 7. Essential hypertension. The patient was encouraged to stop drinking and follow up in the office for a repeat on his blood work. Heart healthy diet. Decrease activity. AMERICA/ZELALEM/ANDREW DR: AMERICA/dave TID: [id number]
== END 2021-07-29 15:30 | disposition home or self-care (01) | DRG 641 ==
LOC: ER 11:35 → ER HOLD 15:14 → 1 SOUTH 15:46
PROVIDERS: ADMIT Family Medicine; ATTEND Family Medicine
DX: E87.8 Other disorders of electrolyte and fluid balance, not elsewhere classified (principal); F10.231 Alcohol dependence with withdrawal delirium; E87.2 Acidosis; I10 Essential (primary) hypertension; Z83.3 Family history of diabetes mellitus; Z87.19 Personal history of other diseases of the digestive system; Z87.442 Personal history of urinary calculi; K21.9 Gastro-esophageal reflux disease without esophagitis; K57.90 Diverticulosis of intestine, part unspecified, without perforation or abscess without bleeding; Z20.822 Contact with and (suspected) exposure to COVID-19; Z87.440 Personal history of urinary (tract) infections; Y90.6 Blood alcohol level of 120-199 mg/100 ml; D72.819 Decreased white blood cell count, unspecified
CPT/HCPCS: 36415; 70450; 71045; 72125; 80053; 80307; 80329; 81001; 82010; 82140; 82803; 82947; 83605; 83690; 83735; 83880; 84484; 85025; 85610; 87040; 87428; 93005; 96361; 96365; 96375; G0480; J2060; J2405; J7120; U0003; 99285-25; J7030